=== PATIENT | female | born 1980 | race African-American/Black ===

== ENCOUNTER 2020-07-18 16:29 | Emergency (ER) | payer SELFPAY ==
[~2020-07-18] VITALS: Ht 175.3 cm; Wt 120.0 kg
[2020-07-18 16:40] VITALS: BP 177/122
[2020-07-18] MEDS ORDERED: ACYC800T PO (16:59)
[2020-07-18] MEDS ORDERED: SULF1TAB23 PO (16:59)
[2020-07-18] MEDS ORDERED: TRAM50TA PO (16:59)
--- NOTE | 2020-07-18 17:00 | PHYS DOC ---
General Adult EDM: Chief Complaint: ABSCESS HPI: HPI: Patient is a 39 year old female with history of hypertension, vaginal herpes, who presents to the ED today stating she had a vaginal herpes flareup that began 2 to 3 days ago. She states today she noted an abscess on her right labia. Patient denies any fever. (PATRICIA VASQUEZ APRN) Review of Systems: Review of Systems: Constitutional: Denies fever or chills. [] Musculoskeletal: Denies back pain or joint pain. [] Integument: Reports right labia abscess, reports vaginal herpes Neurologic: Denies headache, focal weakness or sensory changes. [] Psychiatric: Denies depression or anxiety. [] (PATRICIA VASQUEZ APRN) Heart Score: Risk Factors: Risk Factors: DM, Current or recent (<one month) smoker, HTN, HLP, family history of CAD, obesity. Risk Scores: Score 0 - 3: 2.5% MACE over next 6 weeks - Discharge Home Score 4 - 6: 20.3% MACE over next 6 weeks - Admit for Clinical Observation Score 7 - 10: 72.7% MACE over next 6 weeks - Early Invasive Strategies (PATRICIA VASQUEZ APRN) Physical Exam: PE: Constitutional: Well developed, well nourished, no acute distress, non-toxic appearance. [] Abdomen: Bowel sounds normal, soft, no tenderness, no masses, no pulsatile masses. [] Skin: Right labia majora with multiple open areas from vaginal herpes, labia majora has an area of induration approximately 3 x 3 cm consistent with a nondisplaced, there is warm tender to touch fluctuance and draining right now. Back: No tenderness, no CVA tenderness. [] Extremities: No tenderness, no cyanosis, no clubbing, ROM intact, no edema. [] Neurologic: Alert and oriented X 3, normal motor function, normal sensory function, no focal deficits noted. [] Psychologic: Affect normal, judgement normal, mood normal. [] (PATRICIA VASQUEZ APRN) EKG: EKG: [] (PATRICIA VASQUEZ APRN) Radiology/Procedures: Radiology/Procedures: Indication: abscess right labia Procedure: The patient was positioned appropriately. Local anesthesia was N/A. Mild amount of bloody purulent material was expressed. The drainage cavity was irrigated and packed with sterile gauze. The patients tetanus status updated as needed. The patient tolerated the procedure well. Complications: none.[] (PATRICIA VASQUEZ APRN) Course & Med Decision Making: Course & Med Decision Making Pertinent Labs and Imaging studies reviewed. (See chart for details) This is a 39-year-old female patient presenting to the ED today with vaginal herpes and an abscess from the habits. Symptoms for 2 to 3 days. Abscess was draining in the ED, I went ahead and expressed pus from the region. She was instructed on wound care. She was discharged on Bactrim and acyclovir. Also given prescription for pain medicine. Tetanus updated. Provided return precautions. (PATRICIA VASQUEZ APRN) Dragon Disclaimer: Dragon Disclaimer: This electronic medical record was generated, in whole or in part, using a voice recognition dictation system. (PATRICIA VASQUEZ APRN) Departure Departure Impression: Primary Impression: Herpes simplex virus (HSV) infection of vagina Additional Impression: Abscess of labia majora Disposition: 01 DC HOME SELF CARE/HOMELESS Condition: STABLE Referrals: NO PCP (PCP) Follow-up with your own doctor in 1 to 2 weeks Patient Instructions: Abscess, Care After, Genital Herpes Additional Instructions: You were evaluated in the emergency room for herpes and an abscess. Apply warm compresses to the abscess area 2-3 times a day. Take the prescribed antibiotics as ordered until completed. Take the prescribed acyclovir until completed. Follow-up with your own doctor in 1 to 2 weeks Scripts Tramadol Hcl (TRAMADOL HCL) 50 Mg Tablet 50 MG PO Q6HRS PRN for PAIN, #30 TAB Prov: PATRICIA VASQUEZ APRN 07/18/20 Acyclovir (ACYCLOVIR) 800 Mg Tablet 1 TAB PO 5XDAY, #50 TAB Prov: PATRICIA VASQUEZ APRN 07/18/20 Sulfamethoxazole/Trimethoprim (BACTRIM 400-80 MG TABLET) 1 Each Tablet 1 TAB PO BID for 10 Days, #20 TAB 0 Refills Prov: PATRICIA VASQUEZ APRN 07/18/20 Attending Signature Attending Signature I have reviewed the PA/CLERK GENERAL OFFICE's note and plan of care. I was available for consultation as needed during the patient's visit in the emergency department. I agree with the clinical impression, plan, and disposition. (ROZ REA DO) PATRICIA VASQUEZ APRN Jul 18, 2020 16:59 ROZ REA DO Jul 19, 2020 10:18
[2020-07-18] MEDS ORDERED: DIPH,PERTUSS(ACELL),TET VAC/PF 0.5 ML SYRINGE. VAX IM ONE (17:15)
== END 2020-07-18 17:30 | disposition home or self-care (01) ==
LOC: ER 16:29
DX: N76.4 Abscess of vulva (principal); A60.04 Herpesviral vulvovaginitis
CPT/HCPCS: 56405; 90471; 90715; 99284